=== PATIENT | male | born 1945 | race Caucasian/White ===

== ENCOUNTER 2016-10-26 07:58 | Outpatient (CLI) | payer OTHER | END 2016-10-26 07:59 | disposition home or self-care (01) | DX: I35.1 Nonrheumatic aortic (valve) insufficiency (principal); I51.7 Cardiomegaly; I77.810 Thoracic aortic ectasia ==

== ENCOUNTER 2016-12-29 12:38 | Emergency (ER) | payer OTHER ==
[2016-12-29 12:58] VITALS: BP 128/70
--- NOTE | 2016-12-29 13:16 | ED Physician Documentation ---
PD HPI BACK PAIN - Stated complaint Stated Complaint: BACK PAIN - Chief complaint Chief Complaint: Back Pain - History obtained from History obtained from: Patient - History of Present Illness Timing - onset: Other (The last 10 days he's had nonmigratory and nonradiating right flank pain that is somewhat worse when he is standing up. At times the pain takes his breath away, although he denies shortness of breath. He's had very mild nausea with it and a poor appetite. He is a history of aortic regurgitation, otherwise is pretty healthy. No history of renal colic. No urinary complaints.) Review of Systems Ten Systems: 10 systems reviewed and negative Constitutional: denies: Fever, Chills Cardiac: denies: Chest pain / pressure, Palpitations Respiratory: denies: Dyspnea, Cough GI: denies: Abdominal Pain, Vomiting, Diarrhea PD PAST MEDICAL HISTORY - Past Medical History Past Medical History: Yes Cardiovascular: Hypertension, Other Psych: Depression - Past Surgical History Past Surgical History: No - Present Medications Home Medications: Ambulatory Orders Medication Instructions Recorded Confirmed Aspirin Chewable [[place] 81 mg PO DAILY 12/29/16 12/29/16 Aspirin] Atorvastatin [Lipitor] 0 mg PO DAILY 12/29/16 12/29/16 HYDROcod/ACETAM 5/325 [[place]eters[place] 5/325] 1 - 2 ea PO Q6H PRN #15 tablet 12/29/16 Lisinopril 0 mg PO DAILY 12/29/16 12/29/16 Sertraline HCl 0 mg PO DAILY 12/29/16 12/29/16 - Allergies Allergies/Adverse Reactions: Allergies Allergy/AdvReac Type Severity Reaction Status Date / Time No Known Drug Allergies Allergy Verified 12/29/16 12:58 - Social History Does the pt smoke?: Yes Smoking Status: Current every day smoker Does the pt drink ETOH?: Yes ETOH Use: Wine, Beer, Liquor Does the pt have substance abuse?: No - Immunizations Immunizations are current?: Yes - POLST Patient has POLST: No PD ED PE NORMAL - Vitals Vital signs reviewed: Yes - General General: Alert and oriented X 3, No acute distress - HEENT HEENT: PERRL, EOMI - Neck Neck: Supple, no meningeal sign, No bony TTP - Cardiac Cardiac: RRR, Other (3/6 decrescendo holosystolic murmur heard best at the right upper sternal border and apex.) - Respiratory Respiratory: No respiratory distress, Clear bilaterally - Abdomen Abdomen: Soft, Non tender - Back Back: No CVA TTP, No spinal TTP, Other (The patient has equal and normal patellar and Achilles reflexes bilaterally. Normal sensation in all areas of the legs. Patient denies saddle anesthesia. Normal strength in flexion and extension at the ankles, knees and flexion of the hips.) - Extremities Extremities: No edema, No calf tenderness / cord - Neuro Neuro: Alert and oriented X 3, Normal speech - Psych Psych: Normal mood, Normal affect Results - Vitals Vitals: Vital Signs - 24 hr 12/29/16 12:55 Temperature 36.6 C Heart Rate 70 Respiratory 17 Rate Blood Pressure 128/70 O2 Saturation 96 Oxygen O2 Source Room air - Labs Labs: Laboratory Tests 12/29/16 12/29/16 12/29/16 13:19 13:52 13:52 WBC 7.2 RBC 4.37 L Hgb 13.9 L Hct 40.6 L MCV 92.9 MCH 31.9 H MCHC 34.3 RDW 13.6 Plt Count 158 MPV 8.4 Neut # 5.4 Lymph # 1.0 L [place] # 0.5 Eos # 0.2 Baso # 0.1 Absolute Nucleated RBC 0.00 Nucleated RBCs 0.0 Sodium 136 Potassium 4.5 Chloride 101 Carbon Dioxide 26 Anion Gap 9.0 BUN 24 H Creatinine 0.8 Estimated GFR (MDRD) 96 Glucose 95 Calcium 9.0 Total Bilirubin 0.7 AST 26 ALT 25 Alkaline Phosphatase 46 Total Protein 7.5 Albumin 4.0 Globulin 3.5 Albumin/Globulin Ratio 1.1 Lipase 31 Urine Color YELLOW Urine Clarity CLEAR Urine pH 5.5 Ur Specific [place] 1.020 Urine Protein NEGATIVE Urine Glucose (UA) NEGATIVE Urine Ketones NEGATIVE Urine Occult Blood NEGATIVE Urine Nitrite NEGATIVE Urine Bilirubin NEGATIVE Urine Urobilinogen 0.2 (NORMAL) Ur Leukocyte Esterase NEGATIVE Ur Microscopic Review NOT INDICATED Urine Culture Comments NOT INDICATED - Rads (name of study) CT A/P Radiology: EMP read contemporaneously (NAD) PD MEDICAL DECISION MAKING - ED course ED course: He presents with right flank pain it sounds mostly musculoskeletal, it is worse with motion and twisting and walking, that said it is in a good location for renal colic, however on CT there is no evidence of this and he's without hematuria. He denies pain at rest making a vascular issue very unlikely. Departure - Departure Disposition: 01 Home, Self Care Clinical Impression: Right flank pain Condition: Good Record reviewed to determine appropriate education?: Yes Instructions: ED Low Back Pain Injury Prescriptions: HYDROcod/ACETAM 5/325 [Peterson 5/325] 1 - 2 ea PO Q6H PRN #15 tablet PRN Reason: Pain Comments: Call your doctor to arrange a follow up appointment. Make the next available appointment. In the interim return anytime if worse or if new symptoms develop. Do not drink or drive while on narcotic pain medicine. Note that many narcotic pain relievers also contain tylenol/acetaminophen. Please ensure that your total dose of acetaminophen from all sources does not exceed 3 grams (3000mg) per day. You may constipated on this medication, take a stool softener such as "Colace" twice a day while you are on it. Also recommend a [id number] laxative such as senna or MiraLAX any day that you do not have a bowel movement. If you received narcotic pain medication in the emergency department, do not drive or operate machinery for the next 24 hours.
[2016-12-29 13:42] LABS: BILIRUBIN,URINE NEGATIVE (NEGATIVE); PH,URINE 5.5 PH (5.0-7.5)
[2016-12-29 13:47] LABS: UA CHARGE (STRIP ONLY) YES; UR CULTURE IF IND NOT INDICATED
[2016-12-29 13:57] LABS: BASOPHILS # (AUTO) 0.1 10^3/uL (0.0-0.1); BASOPHILS % (AUTO) 1.2 %; EOSINOPHILS # (AUTO) 0.2 10^3/uL (0.0-0.7); EOSINOPHILS % (AUTO) 2.8 %; HCT - HEMATOCRIT 40.6 % (42.0-52.0); HGB - HEMOGLOBIN 13.9 g/dL (14.0-18.0); LYMPHOCYTES % (AUTO) 14.3 %; MEAN CORPUSCULAR HEMOGLOBIN 31.9 pg (27.0-31.0); MEAN CORPUSCULAR HGB CONC 34.3 g/dL (32.0-36.0); MEAN CORPUSCULAR VOLUME 92.9 fL (80.0-94.0); MEAN PLATELET VOLUME 8.4 fL (7.4-11.4); MONOCYTES # (AUTO) 0.5 10^3/uL (0.0-1.0); MONOCYTES % (AUTO) 7.4 %; NEUTROPHILS # (AUTO) 5.4 10^3/uL (1.5-6.6); NEUTROPHILS % (AUTO) 74.3 %; RED BLOOD COUNT 4.37 10^6/uL (4.70-6.10); RED CELL DISTRIBUTION WIDTH 13.6 % (12.0-15.0); UNCORRECTED WHITE BLOOD COUNT 7.2 x10^3/uL; WHITE BLOOD COUNT 7.2 x10^3/uL (4.8-10.8)
[2016-12-29 14:08] LABS: ALBUMIN/GLOBULIN RATIO 1.1 (1.0-2.2); BILIRUBIN,TOTAL 0.7 mg/dL (0.2-1.0); CREATININE 0.8 mg/dL (0.6-1.2); POTASSIUM 4.5 mmol/L (3.5-5.0); TOTAL PROTEIN 7.5 g/dL (6.7-8.2)
--- NOTE | 2016-12-29 15:09 | CT Preliminary Report ---
Exam: CT Abdomen/Pelvis W/O IMPRESSION: 1. No urinary tract stones or obstruction. No findings to explain right flank pain. 2. Chronic and incidental findings as above. [facility] SITE ID: [id number]
--- NOTE | 2016-12-29 15:11 | CT Report ---
EXAM: CT ABDOMEN AND PELVIS (CT KUB) EXAM DATE: 12/29/2016 01:57 PM. CLINICAL HISTORY: Rt flank pain. COMPARISONS: None. TECHNIQUE: Routine axial helical CT imaging was performed through the abdomen and pelvis without IV c ontrast. Reconstructions: Coronal and sagittal. In accordance with CT protocol optimization, one or more of the following dose reduction techniques w ere utilized for this exam: automated exposure control, adjustment of mA and/or KV based on patient s ize, or use of iterative reconstructive technique. FINDINGS: Lung Bases: Evaluation is limited by motion artifact. Calcified granuloma in the right lung base. Oth erwise no significant abnormality. Right Kidney/Ureter: No stones, hydronephrosis, or hydroureter. No perinephric fat stranding. Left Kidney/Ureter: No stones, hydronephrosis, or hydroureter. No perinephric fat stranding. Other Solid Organs: Noncontrast images of the solid organs are grossly unremarkable. Gallbladder/Bile Ducts: The gallbladder appears to be decompressed; no definite abnormality. Peritoneal Cavity: No ascites or pneumoperitoneum. No bowel obstruction or abnormal stool burden. Col onic diverticula without inflammatory change. Pelvic Organs: Mild diffuse urinary bladder wall thickening may be secondary to underdistention. No b ladder calcifications. Mildly enlarged prostate gland contains coarse calcifications. Vasculature: Moderate atherosclerosis without aneurysm. Other: None. IMPRESSION: 1. No urinary tract stones or obstruction. No findings to explain right flank pain. 2. Chronic and incidental findings as above. [facility] Referring Provider Line: [phone] SITE ID: [id number]
== END 2016-12-29 15:23 | disposition home or self-care (01) ==
LOC: ED 12:38
DX: R10.9 Unspecified abdominal pain (principal); I10 Essential (primary) hypertension; F32.9 Major depressive disorder, single episode, unspecified; F17.200 Nicotine dependence, unspecified, uncomplicated; Z79.82 Long term (current) use of aspirin
CPT/HCPCS: 36415; 74176; 80053; 81001; 81003; 83690; 85025; 87086; 99283; 99284

== ENCOUNTER 2017-12-04 16:00 | Outpatient (CLI) | payer MEDICARE ==
--- NOTE | 2017-12-04 17:31 | Ultrasound Report ---
EXAM: LEFT LOWER EXTREMITY VENOUS ULTRASOUND EXAM DATE: 12/04/2017 05:00 PM. CLINICAL HISTORY: EDEMA LEG. COMPARISON: None. TECHNIQUE: Real-time sonographic vascular imaging was performed by the reinsurance claims analyst through the lower extremity utilizing both color-flow and Doppler spectral analysis. Multiple business process representative static vidal ges were saved for review. FINDINGS: Common Femoral Vein (CFV): Normal. CFV-GSV Junction: Normal. Profunda Femoral Vein (PFV): Normal. Femoral Vein (FV) Prox: Normal. Femoral Vein (FV) Mid: Normal. Femoral Vein (FV) Dist: Normal. Popliteal Vein: Normal. Posterior Tibial Veins: Normal. Peroneal Veins: Normal. Contralateral Side CFV: Normal. Other: None. IMPRESSION: No evidence for deep venous thrombosis. [facility] Referring Provider Line: [phone] SITE ID: [id number]
== END 2017-12-04 16:01 | disposition home or self-care (01) ==
LOC: DI 16:00
PROVIDERS: ATTEND Physician Assistant Medical
DX: R60.0 Localized edema (principal)

== ENCOUNTER 2018-01-01 10:45 | Outpatient (CLI) | payer MEDICARE ==
[2018-01-01 12:35] LABS: BASOPHILS # (AUTO) 0.1 10^3/uL (0.0-0.1); BASOPHILS % (AUTO) 1.2 %; EOSINOPHILS # (AUTO) 0.2 10^3/uL (0.0-0.7); EOSINOPHILS % (AUTO) 2.8 %; HGB - HEMOGLOBIN 14.6 g/dL (14.0-18.0); LYMPHOCYTES % (AUTO) 16.1 %; MEAN CORPUSCULAR HEMOGLOBIN 32.1 pg (27.0-31.0); MEAN CORPUSCULAR HGB CONC 33.8 g/dL (32.0-36.0); MEAN CORPUSCULAR VOLUME 95.2 fL (80.0-94.0); MEAN PLATELET VOLUME 8.9 fL (7.4-11.4); MONOCYTES # (AUTO) 0.6 10^3/uL (0.0-1.0); MONOCYTES % (AUTO) 9.7 %; NEUTROPHILS # (AUTO) 4.5 10^3/uL (1.5-6.6); NEUTROPHILS % (AUTO) 70.2 %; PLT - PLATELET COUNT 176 10^3/uL (130-450); RED BLOOD COUNT 4.54 10^6/uL (4.70-6.10); RED CELL DISTRIBUTION WIDTH 13.5 % (12.0-15.0); WHITE BLOOD COUNT 6.4 x10^3/uL (4.8-10.8)
[2018-01-01 12:57] LABS: ALBUMIN/GLOBULIN RATIO 1.1 (1.0-2.2); ALKALINE PHOSPHATASE 44 IU/L (42-121); ALT ALANINE AMINOTRANSFERASE 26 IU/L (10-60); AST ASPARTATE AMINOTRANSFERASE 30 IU/L (10-42); BILIRUBIN,TOTAL 0.7 mg/dL (0.2-1.0); BUN - BLOOD UREA NITROGEN 18 mg/dL (6-20); CALCIUM 8.9 mg/dL (8.5-10.3); CARBON DIOXIDE - CO2 29 mmol/L (21-32); CHLORIDE 98 mmol/L (101-111); CHOL/HDL RATIO 1.9 (<5.0); CHOLESTEROL 187 mg/dL; CREATININE 0.8 mg/dL (0.6-1.2); GFR - MDRD 96 (>89); GLUCOSE 99 mg/dL (70-100); HDL CHOLESTEROL 97 mg/dL; LDL CHOLESTEROL,CALCULATED 81 mg/dL; LDL/HDL RATIO 0.8 (<3.6); SODIUM 135 mmol/L (135-145); TOTAL PROTEIN 7.7 g/dL (6.7-8.2); VLDL CHOLESTEROL 9 mg/dL
== END 2018-01-01 10:46 | disposition home or self-care (01) ==
LOC: LAB.WCP 10:45
PROVIDERS: ATTEND Physician Assistant Medical
DX: I10 Essential (primary) hypertension (principal); I71.2 Thoracic aortic aneurysm, without rupture
CPT/HCPCS: 36415; 80053; 80061; 83721; 85025

== ENCOUNTER 2018-01-13 09:08 | Outpatient (CLI) | payer MEDICARE | END 2018-01-13 09:09 | disposition home or self-care (01) | LOC: DI 09:08 | PROVIDERS: ATTEND Physician Assistant Medical | DX: I35.1 Nonrheumatic aortic (valve) insufficiency (principal); I51.7 Cardiomegaly; I77.810 Thoracic aortic ectasia | CPT/HCPCS: 93306 ==

== ENCOUNTER 2018-04-03 08:15 | Outpatient (CLI) | payer MEDICARE ==
[2018-04-03 08:52] LABS: CALCIUM 9.3 mg/dL (8.5-10.3); CREATININE 0.8 mg/dL (0.6-1.2)
[2018-04-03] MEDS ORDERED: IOPAMIDOL-300 100 ML VIAL ONE (09:46)
--- NOTE | 2018-04-03 17:48 | CT Report ---
Reason: ASCENDING AORTIC ANEURYSM Procedure Date: 04/03/2018 Accession Number: [id number] / [id number] Procedure: CT - Chest Angio (PE) CPT Code: FULL RESULT: EXAM: CT ANGIOGRAM CHEST EXAM DATE: 04/03/2018 10:02 AM. CLINICAL HISTORY: Ascending aortic aneurysm. COMPARISON: ABDOMEN/PELVIS W/O 12/29/2016 1:29 PM. TECHNIQUE: Routine helical imaging was performed through the chest in the arterial phase. IV Contrast: 80 ML Isovue 300. Reconstructions: Coronal 3-D MIP reconstructions.Sagittal and coronal. In accordance with CT protocol optimization, one or more of the following dose reduction techniques were utilized for this exam: automated exposure control, adjustment of mA and/or KV based on patient size, or use of iterative reconstructive technique. FINDINGS: Vasculature: There is borderline aneurysmal dilatation of the ascending thoracic aorta measuring up to 4.1 cm. The aorta tapers smoothly to normal caliber in the mid arch and descending region. There is significant tortuosity of the proximal descending thoracic aorta. No acute aortic pathology is identified. There is conventional origin anatomy of the coronary arteries demonstrating minor calcified atherosclerotic disease. Trileaflet aortic valve with mild calcification of the annulus region is also seen. The pulmonary arteries demonstrate no filling defects to suggest pulmonary embolism. Conventional aortic arch anatomy is seen with aortic arch branches diffusely patent. Visualized portions of the mesenteric and renal artery vasculature are relatively patent. Lungs/Pleura: Minimal to mild emphysema is present. 8 mm calcified granuloma is seen in the right lower lobe. Small 6 mm pulmonary nodules in the right middle lobe are seen (image 88 and 103, series 4). Mediastinum: Normal. No cardiac enlargement or adenopathy. Upper Abdomen: Unremarkable. Other: None. IMPRESSION: 1. Significantly tortuous borderline aneurysmal dilation of the aorta with the ascending portion measuring up to 4.1 cm. No acute aortic pathology is demonstrated. 2. Small 6 mm right middle lobe pulmonary nodules. Consider follow-up CT in 6-12 months to assess for stability. [facility]
[2018-04-08] MEDS ORDERED: IOPAMIDOL-300 100 ML VIAL IVP ONE (09:05)
== END 2018-04-03 08:16 | disposition home or self-care (01) ==
LOC: DI 08:15
PROVIDERS: ATTEND Physician Assistant Medical
DX: I71.2 Thoracic aortic aneurysm, without rupture (principal); R91.8 Other nonspecific abnormal finding of lung field
CPT/HCPCS: 36415; 71275; 80048; Q9967

== ENCOUNTER 2021-04-20 11:44 | Outpatient (CLI) | payer MEDICARE ==
[2021-04-20 18:02] LABS: BASOPHILS # (AUTO) 0.1 10^3/uL (0.0-0.1); BASOPHILS % (AUTO) 1.1 %; EOSINOPHILS # (AUTO) 0.1 10^3/uL (0.0-0.7); EOSINOPHILS % (AUTO) 1.9 %; HCT - HEMATOCRIT 44.5 % (42.0-52.0); HGB - HEMOGLOBIN 14.5 g/dL (14.0-18.0); LYMPHOCYTES % (AUTO) 14.6 %; MEAN CORPUSCULAR HEMOGLOBIN 32.2 pg (27.0-31.0); MEAN CORPUSCULAR HGB CONC 32.6 g/dL (32.0-36.0); MEAN CORPUSCULAR VOLUME 98.9 fL (80.0-94.0); MEAN PLATELET VOLUME 10.6 fL (7.4-11.4); MONOCYTES # (AUTO) 0.6 10^3/uL (0.0-1.0); MONOCYTES % (AUTO) 9.2 %; NEUTROPHILS # (AUTO) 5.1 10^3/uL (1.5-6.6); NEUTROPHILS % (AUTO) 72.8 %; PLT - PLATELET COUNT 192 10^3/uL (130-450); RED CELL DISTRIBUTION WIDTH 12.9 % (12.0-15.0)
[2021-04-20 18:15] LABS: ALBUMIN 4.3 g/dL (3.2-5.5); ALBUMIN/GLOBULIN RATIO 1.4 (1.0-2.2); ALKALINE PHOSPHATASE 44 IU/L (42-121); ALT ALANINE AMINOTRANSFERASE 22 IU/L (10-60); AST ASPARTATE AMINOTRANSFERASE 27 IU/L (10-42); BUN - BLOOD UREA NITROGEN 17 mg/dL (6-20); CALCIUM 9.2 mg/dL (8.5-10.3); CARBON DIOXIDE - CO2 29 mmol/L (21-32); CHLORIDE 97 mmol/L (101-111); CHOLESTEROL 204 mg/dL; CREATININE 0.8 mg/dL (0.6-1.2); GFR - MDRD 94 (>89); GLUCOSE 81 mg/dL (70-100); HDL CHOLESTEROL 100 mg/dL; LDL CHOLESTEROL,CALCULATED 93 mg/dL; LDL/HDL RATIO 0.9 (<3.6); POTASSIUM 4.9 mmol/L (3.5-5.0); SODIUM 137 mmol/L (135-145); TOTAL PROTEIN 7.4 g/dL (6.7-8.2); TRIGLYCERIDES 55 mg/dL; VLDL CHOLESTEROL 11 mg/dL
== END 2021-04-20 23:59 | disposition home or self-care (01) ==
LOC: LAB.WCP 11:44
PROVIDERS: ATTEND Physician Assistant Medical
DX: I10 Essential (primary) hypertension (principal); I71.2 Thoracic aortic aneurysm, without rupture
CPT/HCPCS: 36415; 80053; 80061; 83721; 85025

== ENCOUNTER 2023-09-16 12:25 | Outpatient (CLI) | payer MEDICARE ==
[2023-09-16 12:45] LABS: BASOPHILS # (AUTO) 0.1 10^3/uL (0.0-0.1); BASOPHILS % (AUTO) 1.1 %; EOSINOPHILS # (AUTO) 0.1 10^3/uL (0.0-0.7); EOSINOPHILS % (AUTO) 1.4 %; HCT - HEMATOCRIT 42.1 % (42.0-52.0); LYMPHOCYTES # (AUTO) 1.1 10^3/uL (1.5-3.5); LYMPHOCYTES % (AUTO) 17.3 %; MEAN CORPUSCULAR HEMOGLOBIN 31.5 pg (27.0-31.0); MEAN CORPUSCULAR HGB CONC 33.3 g/dL (32.0-36.0); MEAN CORPUSCULAR VOLUME 94.8 fL (80.0-94.0); MEAN PLATELET VOLUME 9.9 fL (7.4-11.4); MONOCYTES # (AUTO) 0.7 10^3/uL (0.0-1.0); MONOCYTES % (AUTO) 10.6 %; NEUTROPHILS # (AUTO) 4.4 10^3/uL (1.5-6.6); NEUTROPHILS % (AUTO) 69.3 %; PLT - PLATELET COUNT 177 10^3/uL (130-450); RED BLOOD COUNT 4.44 10^6/uL (4.70-6.10); RED CELL DISTRIBUTION WIDTH 12.6 % (12.0-15.0); WHITE BLOOD COUNT 6.4 x10^3/uL (4.8-10.8)
[2023-09-16 13:02] LABS: ALBUMIN 4.2 g/dL (3.2-5.5); ALBUMIN/GLOBULIN RATIO 1.2 (1.0-2.2); ALKALINE PHOSPHATASE 52 IU/L (42-121); ALT ALANINE AMINOTRANSFERASE 17 IU/L (10-60); AST ASPARTATE AMINOTRANSFERASE 22 IU/L (10-42); BILIRUBIN,TOTAL 0.5 mg/dL (0.2-1.0); BUN - BLOOD UREA NITROGEN 16 mg/dL (6-20); CALCIUM 9.5 mg/dL (8.5-10.3); CARBON DIOXIDE - CO2 31 mmol/L (21-32); CHLORIDE 96 mmol/L (101-111); CHOL/HDL RATIO 1.9 (<5.0); CHOLESTEROL 183 mg/dL; CREATININE 0.7 mg/dL (0.6-1.3); GFR - MDRD 110 (>89); GLUCOSE 87 mg/dL (74-104); HDL CHOLESTEROL 94 mg/dL; LDL CHOLESTEROL,CALCULATED 79 mg/dL; LDL/HDL RATIO 0.8 (<3.6); POTASSIUM 5.5 mmol/L (3.5-4.5); SODIUM 131 mmol/L (135-145); TOTAL PROTEIN 7.6 g/dL (6.4-8.9); TRIGLYCERIDES 52 mg/dL (48-352); VLDL CHOLESTEROL 10 mg/dL
== END 2023-09-16 12:26 | disposition home or self-care (01) ==
LOC: LAB 12:25
PROVIDERS: ATTEND Physician Assistant Medical
DX: I10 Essential (primary) hypertension (principal)
CPT/HCPCS: 36415; 80053; 80061; 83721; 85025

== ENCOUNTER 2023-10-02 09:08 | Outpatient (CLI) | payer MEDICARE ==
[2023-10-02 09:48] LABS: CALCIUM 9.7 mg/dL (8.5-10.3); CREATININE 0.8 mg/dL (0.6-1.3); POTASSIUM 4.5 mmol/L (3.5-4.5)
== END 2023-10-02 09:09 | disposition home or self-care (01) ==
LOC: LAB 09:08
PROVIDERS: ATTEND Physician Assistant Medical
DX: E87.5 Hyperkalemia (principal)
CPT/HCPCS: 36415; 80048

== ENCOUNTER 2023-10-15 10:44 | Outpatient (CLI) | payer MEDICARE ==
--- NOTE | 2023-10-15 12:17 | XRAY Report ---
PROCEDURE: Lumbar Spine 2-3V INDICATIONS: LOW BACK PAIN TECHNIQUE: 3 views of the lumbar spine were acquired. COMPARISON: None. FINDINGS: Bones: 5 [id number] vertebrae are present. There is normal bony alignment. No vertebral body compression fractures. No suspicious bony lesions. Severe multilevel disc height loss. Lower lumbar facet arthropathy. Suspect possible canal stenosis. Soft tissues: Overlying bowel gas pattern is normal. No suspicious soft tissue calcifications. IMPRESSION: Degenerative change. Suspect canal stenosis. No acute bony abnormality. Depending on symptomatology, lumbar spine MRI may be helpful. Reviewed by: Colt Mack MD on 10/15/2023 12:16 PM PDT Approved by: Colt Mack MD on 10/15/2023 12:16 PM PDT Station ID: [id number]
--- NOTE | 2023-10-15 14:08 | XRAY Report ---
PROCEDURE: Hips w/Pelvis 2-3V BL INDICATIONS: LEFT HIP PAIN TECHNIQUE: An AP view of the pelvis and bilateral frog-leg lateral views of the hips were acquired. COMPARISON: None. FINDINGS: Bones: No fractures or dislocations. No suspicious bony lesions. The visualized pelvic ring appear s intact. Mild to moderate right hip degenerative change. Mild left hip degenerative change. Soft tissues: No suspicious soft tissue calcifications or masses. IMPRESSION: Bilateral hip degenerative change, right greater than left. Reviewed by: Colt Mack MD on 10/15/2023 2:07 PM PDT Approved by: Colt Mack MD on 10/15/2023 2:07 PM PDT Station ID: [id number]
== END 2023-10-15 10:45 | disposition home or self-care (01) ==
LOC: DI 10:44
PROVIDERS: ATTEND Physician Assistant Medical
DX: M47.816 Spondylosis without myelopathy or radiculopathy, lumbar region (principal); M16.0 Bilateral primary osteoarthritis of hip

== ENCOUNTER 2024-07-07 17:51 | Inpatient (IN) ==
[2024-07-07 18:35] LABS: BASOPHILS % (AUTO) 0.4 %; EOSINOPHILS # (AUTO) 0.1 10^3/uL (0.0-0.7); EOSINOPHILS % (AUTO) 0.5 %; HCT - HEMATOCRIT 34.3 % (42.0-52.0); HGB - HEMOGLOBIN 12.5 g/dL (14.0-18.0); LYMPHOCYTES # (AUTO) 0.6 10^3/uL (1.5-3.5); LYMPHOCYTES % (AUTO) 6.4 %; MEAN CORPUSCULAR HEMOGLOBIN 32.2 pg (27.0-31.0); MEAN CORPUSCULAR HGB CONC 36.4 g/dL (32.0-36.0); MEAN CORPUSCULAR VOLUME 88.4 fL (80.0-94.0); MONOCYTES # (AUTO) 0.7 10^3/uL (0.0-1.0); MONOCYTES % (AUTO) 7.7 %; NEUTROPHILS # (AUTO) 8.2 10^3/uL (1.5-6.6); NEUTROPHILS % (AUTO) 84.4 %; PLT - PLATELET COUNT 182 10^3/uL (130-450); RED BLOOD COUNT 3.88 10^6/uL (4.70-6.10); RED CELL DISTRIBUTION WIDTH 11.9 % (12.0-15.0); WHITE BLOOD COUNT 9.7 x10^3/uL (4.8-10.8)
[2024-07-07 18:55] LABS: ALBUMIN 3.8 g/dL (3.2-5.5); ALBUMIN/GLOBULIN RATIO 1.2 (1.0-2.2); BILIRUBIN,TOTAL 0.6 mg/dL (0.2-1.0); CALCIUM 8.5 mg/dL (8.5-10.3); CREATININE 0.7 mg/dL (0.6-1.3); POTASSIUM 4.3 mmol/L (3.5-4.5); TOTAL PROTEIN 6.9 g/dL (6.4-8.9)
[2024-07-07] MEDS: SODIUM CHLORIDE 0.9% 1,000 ML IV STA (19:23)
--- NOTE | 2024-07-07 19:47 | ED Physician Documentation ---
History of Present Illness Stated complaint Stated Complaint: LOW SODIUM Chief complaint Chief Complaint: General History obtained from History obtained from: Patient Additonal information Additional information: The patient comes to the emergency department chief complaint of "I was told to come in because my sodium was low". Patient has been struggling with hyponatremia for the last couple of weeks and was seen in our emergency department last week but did not want to be admitted. He started out with a sodium of 119 and with intervention, the sodium was brought up to 125 in the emergency department. He went to follow-up with his primary doctor in clinic and home was found to have a sodium 120 there. He was told to come back to the emergency department and strongly consider admission. This patient states he has been feeling weak and tired but denies other symptoms acutely. Over the last few weeks, the patient has noticed that he is lost his enjoyment of cooking and eating good food, and has not been eating very well. He also has been drinking about a sixpack of beer every night. He denies drinking excessive amounts of water. His only new medication is Plavix. He is on sertraline but n o dose changes that he knows of. No other complaints at this time. No history of seizures. Prior to a couple weeks ago, the patient's sodium measurements had always been normal. Meds/Allgy Home Medications Ambulatory Orders Medication Instructions Recorded Confirmed aspirin 81 mg tablet,delayed 81 mg PO QDAY 07/07/24 07/07/24 release (Adult Low Dose Aspirin) clopidogrel 75 mg tablet (Plavix) 75 mg PO DAILY #30 tabs 07/07/24 07/07/24 fluocinonide 0.05 % topical 1 applic topical QDAY PRN 07/07/24 07/07/24 solution seborrheic flare lisinopril 10 mg tablet 10 mg PO QPM 07/07/24 07/07/24 metoprolol succinate 25 mg 25 mg PO QDAY 07/07/24 07/07/24 tablet,extended release 24 hr multivitamin (Daily Multi-Vitamin 1 tab PO QDAY 07/07/24 07/07/24 tablet) sertraline 100 mg tablet 100 mg PO QDAY 07/07/24 07/07/24 Allergies Allergies Allergy/AdvReac Type Severity Reaction Status Date / Time No Known Drug Allergies Allergy Verified 07/07/24 18:03 [facility] Medical History Medical History (Updated 07/07/24 @ 19:47 by Amna Poe MD) History of transient ischemic attack Social History Social History Smoking Status: Current every day smoker If you are a former smoker, when did you quit? (Date/Year): 1 Number of Years Smoked: 50 How many cigarettes a day do you smoke? (20 cigarettes=1 Pk): 20 Second hand tobacco smoke exposure: No Do you dip or chew tobacco?: No Do you vape?: No Patient requests smoking cessation consult: No Initiate information on smoking cessation: No Living arrangement: At home Marital Status: Living Condition: Alone Support Person: Yes Relationship: Sibling Level: Independent Do you feel safe in your home environment?: Yes Suffered physical, verbal, emotional, or financial abuse?: No History of Abuse: No ETOH Use: Beer Frequency: Daily Number of Amount/day: 6 Substance Use: cannabis (any form) POLST Patient has POLST: No Exam Constitutional normal general appearance and no apparent distress HENMT normocephalic, head/scalp atraumatic, external nose normal and oral mucous membranes normal Eyes EOMs intact bilaterally Neck/C-Spine visual inspection normal and supple Respiratory breath sounds equal bilaterally, normal respiratory effort and clear to auscultation bilaterally Cardiovascular normal heart rate noted, regular rhythm noted and no edema Gastrointestinal abdomen normal to inspection, abdomen soft to palpation, nontender to palpation and nondistended Genitourinary no CVA tenderness Extremities normal to inspection Neurology Alert, grossly intact Psychiatry mental status grossly normal Skin skin color normal Results Vitals Vitals: Vital Signs - 24 hr 07/07/24 18:04 Temperature 36.1 C L Temperature Source Temporal Artery Scan Pulse Rate 77 Respiratory Rate 18 Blood Pressure 124/66 O2 Saturation 97 O2 Source Room air Pain Intensity 4 Oxygen O2 Source Room air Labs Labs: Laboratory Tests 07/07/24 18:29 WBC 9.7 RBC 3.88 L Hgb 12.5 L Hct 34.3 L MCV 88.4 MCH 32.2 H MCHC 36.4 H RDW 11.9 L Plt Count 182 MPV 9.0 Neut # (Auto) 8.2 H Lymph # (Auto) 0.6 L [place] # (Auto) 0.7 Eos # (Auto) 0.1 Baso # (Auto) 0.0 Absolute Nucleated RBC 0.00 Nucleated RBC % 0.0 Sodium 119 L* Potassium 4.3 Chloride 88 L Carbon Dioxide 25 Anion Gap 6.0 BUN 18 Creatinine 0.7 Estimated GFR (MDRD) 109 Glucose 161 H Calcium 8.5 Total Bilirubin 0.6 AST 18 ALT 15 Alkaline Phosphatase 49 Total Protein 6.9 Albumin 3.8 Globulin 3.1 Albumin/Globulin Ratio 1.2 Lipase 47 PD Medical Decision Making ED course Complexity details: reviewed old records, reviewed results, re-evaluated patient, considered differential and d/w patient ED course: The patient was worked up in the emergency department and was found to have sodium of 119 here. He had already been started on normal saline via IV. I discussed the case with Dr. Lane, the on-call hospitalist and she agreed to admit the patient to her service. Discharge Plan Discharge Patient Disposition: 66 [facility] DC/Xfer Condition: Serious Clinical Impression: Hyponatremia Interventions: ED Admission Assessment Last Done: 07/07/24 20:24
--- NOTE | 2024-07-07 20:22 | XRAY Report ---
PROCEDURE: XR Chest 1V INDICATIONS: hyponatremia, possible mass TECHNIQUE: One view of the chest was acquired. COMPARISON: 05/04/2016, 06/04/2016. Correlation is also made with CT, 04/03/2018 FINDINGS: Surgical changes and devices: None. Lungs and pleura: No pleural effusions or pneumothorax. No consolidation. Mild generalized intersti tial prominence can be seen. Mediastinum: The aorta is prominent and tortuous. The cardiac contours are mildly enlarged. Bones and chest wall: No suspicious bony lesions. There is dextroconvex scoliosis. Age-appropriate d egenerative changes are seen. Overlying soft tissues appear unremarkable. IMPRESSION: Mild cardiomegaly and mild interstitial prominence. Please consider mild/early CHF. The aorta is prominent and tortuous, as before. Moderate dextroconvex thoracic scoliosis is seen. Reviewed by: Solo John MD on 07/07/2024 7:20 PM [facility] Approved by: Solo John MD on 07/07/2024 7:20 PM [facility] Station ID: [id number]
[2024-07-07] MEDS ORDERED: SODIUM CHLORIDE FLUSH 0.9% 10 ML SYRINGE IVP PRN (20:33)
[2024-07-07] MEDS ORDERED: ONDANSETRON ODT 4 MG TABLET TL PRN (20:33)
--- NOTE | 2024-07-07 20:35 | HISTORY & PHYSICAL EXAMINATION ---
Chief Complaint Chief Complaint Chief Complaint: abnormal labs History of Present Illness Admitted From Admitted From:: Home History Obtained From Records Reviewed: Yes History obtained from: Records, ED physician, and patient Exam Limitations: Telemedicine History of Present Illness HPI Comment/Other: Mr. Rodriguez is a 79yoM with a history of hypertension,TIA, depression that presented to the ED for re-evaluation of low sodium. He initially presented a week prior to this presentation with complaints of weakness, fatigue and lethargy,. He denied any precipitating factors, sick contacts, cough, fever, shortness of breath. Workup at that time demonstrated a sodium of 119. He left AMA once his sodium levels corrected after receiving fluids in the ED. On the day of presentation he had outpatient labwork at his follow up appointment with his PCP and was found to have a sodium of 119 again. He endorses similar symptoms,but denies any new acute changes.He was recently started on Plavix. He takes lisinopril for hypertension and Sertraline for depression. He has not had any changes to his medications or dosages in the past month. Due to the increased risk of adverse outcome of untreated hyponatremia and the reoccurrence, I will admit the patient to the hospitalist service for further evaluation and management. During my evaluation, telemedicine tools, including phone and live-video were used. Patient gave consent to proceed with this visit via telemedicine. I discussed the Plan of care to correct and monitor his sodium levels with the patient. He agreed with plan of treat and admission. Review of Systems Status of ROS: 10 or more systems reviewed and unremarkable except as noted in history and below [facility] Medical History Medical History (Updated 07/07/24 @ 19:47 by Amna Poe MD) History of transient ischemic attack Social History Social History Smoking Status: Current every day smoker Number of Years Smoked: 50 How many cigarettes a day do you smoke? (20 cigarettes=1 Pk): 20 Second hand tobacco smoke exposure: No Do you dip or chew tobacco?: No Do you vape?: No Living arrangement: At home Marital Status: Living Condition: Alone Support Person: Yes Relationship: Level: Independent Do you feel safe in your home environment?: Yes Suffered physical, verbal, emotional, or financial abuse?: No History of Abuse: No ETOH Use: Beer Frequency: Daily Number of Amount/day: 6 Substance Use: cannabis (any form) POLST Patient has POLST: No Meds/Allgy Home Medications Ambulatory Orders Medication Instructions Recorded Confirmed aspirin 81 mg tablet,delayed 81 mg PO QDAY 07/07/24 07/07/24 release (Adult Low Dose Aspirin) clopidogrel 75 mg tablet (Plavix) 75 mg PO DAILY #30 tabs 07/07/24 07/07/24 fluocinonide 0.05 % topical 1 applic topical QDAY PRN 07/07/24 07/07/24 solution seborrheic flare lisinopril 10 mg tablet 10 mg PO QPM 07/07/24 07/07/24 metoprolol succinate 25 mg 25 mg PO QDAY 07/07/24 07/07/24 tablet,extended release 24 hr multivitamin (Daily Multi-Vitamin 1 tab PO QDAY 07/07/24 07/07/24 tablet) sertraline 100 mg tablet 100 mg PO QDAY 07/07/24 07/07/24 Allergies Allergies Allergy/AdvReac Type Severity Reaction Status Date / Time No Known Drug Allergies Allergy Verified 07/07/24 18:03 Exam Exam Examination as recorded was obtained from the patient reports or through my peripheral observations. Constitutional normal general appearance and no apparent distress HENMT normocephalic Eyes PERRL and EOMs intact bilaterally Neck/C-Spine visual inspection normal Chest inspection of chest normal Respiratory normal respiratory effort and no use of accessory muscles Cardiovascular normal heart rate noted and regular rhythm noted Gastrointestinal abdomen normal to inspection Extremities normal to inspection and full ROM Neurology no movement abnormality noted, no focal motor deficit noted and speech normal Skin skin color normal, no jaundice, no petechiae and no mottling Conclusion/Plan Problem List (1) Hyponatremia: Plan: Etiology of hyponatremia unknown, I will evaluate and manage as follows: -order Normal Saline IV @ 100cc/hr, monitor sodium levels q4h -Goal of correction equal to or less than 8meq in the 24hours -If evidence of overcorrection is noted will hold fluids and recheck, if still correcting too quickly with counter with the initiation of D5W -Will obtain Urine analysis and urine studies -Reviewed home medications: he is on an SSRI which can cause hyponatremia, but he has been on the current dosage for many years. -patient has a 1ppd history of tobacco abuse, will obtain a chest xray to evaluate for possible masses that could result in SIADH and hyponatremia. -If above workup is negative further follow up by nephrology is warranted. (2) Hypertension, essential, benign: Plan: Home medications reviewed, will manage as follows: -resume lisinopril 10mg daily, monitor renal function and clinical response to avoid toxicity -resume metoprolol daily, monitor vitals with continuos telemetry to measure clinical response and to avoid adverse effects (3) Depression: Plan: home medication reviewed. pateint on sertraline 100mg daily, will resume. -in the setting of recurrent hyponatremia, if above workup is negative, may consider titrating off sertraline and switching to another form of antidepressant. Lab Results Lab results reviewed: Yes 07/07/24 18:29 07/07/24 18:29 Core Measures Anticipated LOS I expect patient to be DC'd or transferred within 96 hours.: Yes DVT/VTE - Prophylaxis VTE/DVT Device ordered at admit?: Yes Telemedicine Consult Details Provider Location & Consult Time Telemedicine consultation conducted via videoconferencing?: Yes
[2024-07-07] MEDS: ASPIRIN EC 81 MG TABLET PO SCH (21:07)
[2024-07-07] MEDS: METOPROLOL SUCCINATE 25 MG TABLET PO SCH (21:08)
[2024-07-07] MEDS: SERTRALINE 50 MG TABLET PO SCH (21:08)
[2024-07-07] MEDS: lisinopriL 5 MG TABLET PO SCH (21:08)
[2024-07-07] MEDS: SODIUM CHLORIDE 0.9% 1,000 ML IV SCH (21:19)
[2024-07-07] MEDS: ACETAMINOPHEN 325 MG TABLET PO PRN (22:58)
[2024-07-08] MEDS: SODIUM CHLORIDE FLUSH 0.9% 10 ML SYRINGE IVP SCH (00:40)
[2024-07-08 07:29] LABS: BILIRUBIN,URINE NEGATIVE (NEGATIVE); GLUCOSE, URINE (UA) NEGATIVE (NEGATIVE); KETONES,URINE (UA) NEGATIVE (NEGATIVE); LEUKOCYTE ESTERASE, URINE NEGATIVE (NEGATIVE); NITRITE,URINE NEGATIVE (NEGATIVE); OCCULT BLOOD,URINE NEGATIVE (NEGATIVE); PROTEIN,URINE NEGATIVE (NEGATIVE); UROBILINOGEN,URINE 0.2 (NORMAL) E.U./dL (NORMAL)
[2024-07-08 07:36] LABS: BACTERIA,URINE None Seen /HPF (None Seen); CLARITY,URINE CLEAR (CLEAR); RBC,URINE None Seen /HPF (0-5); SQUAMOUS EPITHELIAL CELL,UR NONE SEEN (<= Few); WBC,URINE 0-3 /HPF (0-3)
--- NOTE | 2024-07-08 08:28 | PROVIDER PROGRESS NOTE ---
Subjective Prog Note Date Prog Note Date: 07/08/24 Subjective Pt reports feeling: Improved Current Medications Current Medications Current Medications: Current Medications Generic Name Dose Route Start Last Admin Trade Name Jordiq PRN Reason Stop Dose Admin Acetaminophen 650 mg 07/07/24 20:33 07/08/24 04:19 Acetaminophen 325 Mg Tablet PO 650 mg Q4HR PRN Administration Pain 1 to 4, or Fever Aspirin 81 mg 07/07/24 20:33 07/07/24 21:07 Aspirin Ec 81 Mg Tablet PO Not Given DAILY GIOVNANI Clopidogrel Bisulfate 75 mg 07/08/24 09:00 Clopidogrel 75 Mg Tablet PO DAILY GIOVANNI Sodium Chloride 1,000 mls @ 100 mls/hr 07/07/24 20:33 07/08/24 07:01 Normal Saline 0.9% IV 100 mls/hr .Q10H GIOVANNI Administration Lisinopril 10 mg 07/07/24 21:00 07/07/24 21:08 Lisinopril 5 Mg Tablet PO Not Given QPM GIOVANNI Metoprolol Succinate 25 mg 07/07/24 20:33 07/07/24 21:08 Metoprolol Succinate 25 Mg Tablet PO Not Given DAILY GIOVANNI Ondansetron HCl 4 mg 07/07/24 20:33 Ondansetron Odt 4 Mg Tablet TL Q6HR PRN Nausea / Vomiting Sertraline HCl 100 mg 07/07/24 20:33 07/07/24 21:08 Sertraline 50 Mg Tablet PO Not Given DAILY GIOVANNI Sodium Chloride 10 ml 07/07/24 20:33 Sodium Chloride Flush 0.9% 10 Ml Syringe IVP PRN PRN NEEDED PER PROVIDER ORDERS Sodium Chloride 10 ml 07/08/24 01:00 07/08/24 00:40 Sodium Chloride Flush 0.9% 10 Ml Syringe IVP Not Given 0100,0900,1700 [facility] Objective Vital Signs/Intake & Output Reviewed Vital Signs: Yes Vital Signs: Vital Signs x48h Temp Pulse Resp BP Pulse Ox 07/08/24 05:46 36.5 C 74 18 125/63 96 Intake & Output: Intake & Output 07/05/24 07/06/24 07/07/24 07/08/24 23:59 23:59 23:59 23:59 Intake Total 1000 / 1000 970 / 970 Output Total 450 / 450 Balance 1000 / 1000 520 / 520 Weight (kg) 56.5 kg Objective General Appearance: positive No acute distress and Alert Eyes Bilateral: positive Normal inspection and PERRL ENT: positive ENT inspection nml Neck: positive Nml inspection Respiratory: positive Chest non-tender and No respiratory distress Cardiovascular: positive Regular rate & rhythm Abdomen: positive Non-tender Skin: positive Color nml Extremities: positive Non-tender Neurologic/Psychiatric: positive Oriented x3 Lab Results 07/07/24 18:29 07/08/24 08:57 Other Labs: Lab Results x24hrs 07/08/24 07/08/24 07/08/24 Range/Units 06:41 04:40 00:58 WBC (4.8-10.8) x10^3/uL RBC (4.70-6.10) 10^6/uL Hgb (14.0-18.0) g/dL Hct (42.0-52.0) % MCV (80.0-94.0) fL MCH (27.0-31.0) pg MCHC (32.0-36.0) g/dL RDW (12.0-15.0) % Plt Count (130-450) 10^3/uL MPV (7.4-11.4) fL Neut # (Auto) (1.5-6.6) 10^3/uL Lymph # (Auto) (1.5-3.5) 10^3/uL [place] # (Auto) (0.0-1.0) 10^3/uL Eos # (Auto) (0.0-0.7) 10^3/uL Baso # (Auto) (0.0-0.1) 10^3/uL Absolute Nucleated RBC x10^3/uL Nucleated RBC % /100WBC Sodium 124 L 122 L (135-145) mmol/L Potassium (3.5-4.5) mmol/L Chloride (101-111) mmol/L Carbon Dioxide (21-32) mmol/L Anion Gap (6-13) BUN (6-20) mg/dL Creatinine (0.6-1.3) mg/dL Estimated GFR (MDRD) (>89) Glucose (74-104) mg/dL Calcium (8.5-10.3) mg/dL Total Bilirubin (0.2-1.0) mg/dL AST (10-42) IU/L ALT (10-60) IU/L Alkaline Phosphatase (42-121) IU/L Total Protein (6.4-8.9) g/dL Albumin (3.2-5.5) g/dL Globulin (2.1-4.2) g/dL Albumin/Globulin Ratio (1.0-2.2) Lipase (11-82) U/L Urine Color YELLOW Urine Clarity CLEAR (CLEAR) Urine pH 6.0 (5.0-7.5) PH Ur Specific [place] 1.010 (1.002-1.030) Urine Protein NEGATIVE (NEGATIVE) mg/dL Urine Glucose (UA) NEGATIVE (NEGATIVE) mg/dL Urine Ketones NEGATIVE (NEGATIVE) mg/dL Urine Occult Blood NEGATIVE (NEGATIVE) Urine Nitrite NEGATIVE (NEGATIVE) Urine Bilirubin NEGATIVE (NEGATIVE) Urine Urobilinogen 0.2 (NORMAL) (NORMAL) E.U./dL Ur Leukocyte Esterase NEGATIVE (NEGATIVE) Urine RBC None Seen (0-5) /HPF Urine WBC 0-3 (0-3) /HPF Ur Squamous Epith Cells NONE SEEN (<= Few) Urine Bacteria None Seen (None Seen) /HPF Urine Culture Comments NOT INDICATED 07/07/24 07/07/24 Range/Units 20:00 18:29 WBC 9.7 (4.8-10.8) x10^3/uL RBC 3.88 L (4.70-6.10) 10^6/uL Hgb 12.5 L (14.0-18.0) g/dL Hct 34.3 L (42.0-52.0) % MCV 88.4 (80.0-94.0) fL MCH 32.2 H (27.0-31.0) pg MCHC 36.4 H (32.0-36.0) g/dL RDW 11.9 L (12.0-15.0) % Plt Count 182 (130-450) 10^3/uL MPV 9.0 (7.4-11.4) fL Neut # (Auto) 8.2 H (1.5-6.6) 10^3/uL Lymph # (Auto) 0.6 L (1.5-3.5) 10^3/uL [place] # (Auto) 0.7 (0.0-1.0) 10^3/uL Eos # (Auto) 0.1 (0.0-0.7) 10^3/uL Baso # (Auto) 0.0 (0.0-0.1) 10^3/uL Absolute Nucleated RBC 0.00 x10^3/uL Nucleated RBC % 0.0 /100WBC Sodium 121 L 119 L* (135-145) mmol/L Potassium 4.3 (3.5-4.5) mmol/L Chloride 88 L (101-111) mmol/L Carbon Dioxide 25 (21-32) mmol/L Anion Gap 6.0 (6-13) BUN 18 (6-20) mg/dL Creatinine 0.7 (0.6-1.3) mg/dL Estimated GFR (MDRD) 109 (>89) Glucose 161 H (74-104) mg/dL Calcium 8.5 (8.5-10.3) mg/dL Total Bilirubin 0.6 (0.2-1.0) mg/dL AST 18 (10-42) IU/L ALT 15 (10-60) IU/L Alkaline Phosphatase 49 (42-121) IU/L Total Protein 6.9 (6.4-8.9) g/dL Albumin 3.8 (3.2-5.5) g/dL Globulin 3.1 (2.1-4.2) g/dL Albumin/Globulin Ratio 1.2 (1.0-2.2) Lipase 47 (11-82) U/L Urine Color Urine Clarity (CLEAR) Urine pH (5.0-7.5) PH Ur Specific [place] (1.002-1.030) Urine Protein (NEGATIVE) mg/dL Urine Glucose (UA) (NEGATIVE) mg/dL Urine Ketones (NEGATIVE) mg/dL Urine Occult Blood (NEGATIVE) Urine Nitrite (NEGATIVE) Urine Bilirubin (NEGATIVE) Urine Urobilinogen (NORMAL) E.U./dL Ur Leukocyte Esterase (NEGATIVE) Urine RBC (0-5) /HPF Urine WBC (0-3) /HPF Ur Squamous Epith Cells (<= Few) Urine Bacteria (None Seen) /HPF Urine Culture Comments Assessment/Plan Problem List (1) Hyponatremia: Impression: NS at 100 Sodium levels every 4 Correction goal no more than 8 mEq over 24 hours Urine studies ordered by admitting provider He is on SSRI, but he has been on this for years Chest x-ray Without any mass that could cause SIADH Sodium level 124 at last check. It needs to stay at or below 127 until at least 8:00 tonight (2) Hypertension, essential, benign: Impression: Well-managed Continue home dose lisinopril 10 mg p.o. every afternoon and metoprolol succinate 25 mg p.o. daily (3) Depression: Impression: Continue home dose sertraline
[2024-07-08] MEDS: CLOPIDOGREL 75 MG TABLET PO SCH (08:57)
--- NOTE | 2024-07-08 14:10 | PHARMACY PROGRESS NOTE ---
Best Possible Medication History Admit Date and Time: 07/08/24 [id number] Home Medications Medication Instructions Recorded Confirmed Type aspirin 81 mg tablet,delayed 81 mg PO QDAY 07/07/24 07/08/24 History release (Adult Low Dose Aspirin) clopidogrel 75 mg tablet (Plavix) 75 mg PO DAILY #30 tabs 07/07/24 07/08/24 Rx fluocinonide 0.05 % topical 1 applic topical QDAY PRN 07/07/24 07/08/24 History solution seborrheic flare lisinopril 10 mg tablet 10 mg PO QPM 07/07/24 07/08/24 History metoprolol succinate 25 mg 25 mg PO QDAY 07/07/24 07/08/24 History tablet,extended release 24 hr multivitamin (Daily Multi-Vitamin 1 tab PO QDAY 07/07/24 07/08/24 History tablet) sertraline 100 mg tablet 100 mg PO QDAY 07/07/24 07/08/24 History ibuprofen 200 mg tablet (Advil) 200 mg PO BID PRN pain 07/08/24 07/08/24 History Processed by: Pharmacy (Medication reconciliation completed by pharmacy technician program directorUma) Medications reviewed in ED?: No Medication History completed: Yes Patient Interview: Completed Secondary Source(s): Prescription bottles and Insurance records [facility] Statement: As the person ultimately responsible for medication therapy, providers are able to order a medication from an existing home medication list in [facility] via the "Reconcile Routine" prior to Confirmation of that medication by intelligence support officer. Such practice is discouraged except when the physician, in their clinical judgment, deems that a medical need exists for a medication without regard to previous use.
[2024-07-09] MEDS: IBUPROFEN 400 MG TABLET PO SCH (00:16)
[2024-07-09] MEDS: MORPHINE 2 MG/ML CARPUJECT IVP PRN (04:39)
[2024-07-09 05:35] LABS: BASOPHILS % (AUTO) 0.6 %; EOSINOPHILS # (AUTO) 0.1 10^3/uL (0.0-0.7); HCT - HEMATOCRIT 30.8 % (42.0-52.0); LYMPHOCYTES # (AUTO) 0.8 10^3/uL (1.5-3.5); LYMPHOCYTES % (AUTO) 11.5 %; MEAN CORPUSCULAR HGB CONC 35.7 g/dL (32.0-36.0); MEAN CORPUSCULAR VOLUME 89.5 fL (80.0-94.0); MONOCYTES # (AUTO) 0.7 10^3/uL (0.0-1.0); MONOCYTES % (AUTO) 10.5 %; NEUTROPHILS # (AUTO) 5.1 10^3/uL (1.5-6.6); PLT - PLATELET COUNT 138 10^3/uL (130-450); RED BLOOD COUNT 3.44 10^6/uL (4.70-6.10); RED CELL DISTRIBUTION WIDTH 11.9 % (12.0-15.0); WHITE BLOOD COUNT 6.7 x10^3/uL (4.8-10.8)
[2024-07-09 05:51] LABS: CALCIUM 8.1 mg/dL (8.5-10.3); CREATININE 0.6 mg/dL (0.6-1.3); POTASSIUM 4.2 mmol/L (3.5-4.5)
--- NOTE | 2024-07-09 06:14 | PROVIDER PROGRESS NOTE ---
Unit Coordinator Note Unit Coordinator Note Unit Coordinator Note: na 119 with prior 121 currently on IVF will hold [id number] given risk of worsening low na repeat bmp now
[2024-07-09] MEDS: SODIUM CHLORIDE 1 GM TABLET PO SCH (08:21)
[2024-07-09] MEDS ORDERED: IBUPROFEN 400 MG TABLET PO PRN (08:47)
--- NOTE | 2024-07-09 08:48 | PROVIDER PROGRESS NOTE ---
Subjective Prog Note Date Prog Note Date: 07/09/24 Prog Note Time: 08:38 Subjective Pt reports feeling: Improved Subjective: complains of left hip pain, chronic, but worse this AM. Does not like cardiac diet. he denies headaches or weakness. I am meeting the patient for the first time today. He lives alone. When he needs help, he calls his neighbor, who will be his ride home when he is ready to go. His brother Omi would be his legal decision maker if needed. In the case of cardiopulmonary arrest, He does wish to have CPR and he would not mind being on a ventilator for a short course, but he does not want t obe on "life support" for an extended time. Current Medications Current Medications Current Medications: Current Medications Generic Name Dose Route Start Last Admin Trade Name Freq PRN Reason Stop Dose Admin Acetaminophen 650 mg 07/07/24 20:33 07/09/24 08:22 Acetaminophen 325 Mg Tablet PO 650 mg Q4HR PRN Administration Pain 1 to 4, or Fever Aspirin 81 mg 07/07/24 20:33 07/09/24 08:21 Aspirin Ec 81 Mg Tablet PO 81 mg DAILY GIOVANNI Administration Clopidogrel Bisulfate 75 mg 07/08/24 09:00 07/09/24 08:21 Clopidogrel 75 Mg Tablet PO 75 mg DAILY GIOVANNI Administration Ibuprofen 400 mg 07/08/24 23:45 07/09/24 00:16 Ibuprofen 400 Mg Tablet PO 07/09/24 23:44 400 mg ONCE GIOVANNI Administration Metoprolol Succinate 25 mg 07/07/24 20:33 07/09/24 08:21 Metoprolol Succinate 25 Mg Tablet PO 25 mg DAILY GIOVANNI Administration Morphine Sulfate 2 mg 07/09/24 02:07 07/09/24 04:39 Morphine 2 Mg/Ml Carpuject IVP 2 mg Q4H PRN Administration Severe Pain (Level 7-10) Ondansetron HCl 4 mg 07/07/24 20:33 Ondansetron Odt 4 Mg Tablet TL Q6HR PRN Nausea / Vomiting Sertraline HCl 100 mg 07/07/24 20:33 07/09/24 08:21 Sertraline 50 Mg Tablet PO 100 mg DAILY IGOVANNI Administration Sodium Chloride 10 ml 07/07/24 20:33 Sodium Chloride Flush 0.9% 10 Ml Syringe IVP PRN PRN NEEDED PER PROVIDER ORDERS Sodium Chloride 10 ml 07/08/24 01:00 07/09/24 04:40 Sodium Chloride Flush 0.9% 10 Ml Syringe IVP 10 ml 0100,0900,1700 GIOVANNI Administration Sodium Chloride 1 gm 07/09/24 09:00 07/09/24 08:21 Sodium Chloride 1 Gm Tablet PO 1 gm DAILY GIOVANNI Administration Objective Vital Signs/Intake & Output Reviewed Vital Signs: Yes Vital Signs: Vital Signs x48h Temp Pulse Resp BP Pulse Ox 07/09/24 04:58 36.5 C 62 20 128/57 L 97 Intake & Output: Intake & Output 07/06/24 07/07/24 07/08/24 07/09/24 23:59 23:59 23:59 23:59 Intake Total 1000 / 1000 3088 / 3088 1702 / 1702 Output Total 1650 / 1650 950 / 950 Balance 1000 / 1000 1438 / 1438 752 / 752 Weight (kg) 56.5 kg Objective General Appearance: positive No acute distress and Alert Eyes Bilateral: positive Normal inspection and PERRL ENT: positive ENT inspection nml Neck: positive Nml inspection Respiratory: positive Chest non-tender and No respiratory distress Cardiovascular: positive Regular rate & rhythm Abdomen: positive Non-tender Skin: positive Color nml Extremities: positive Non-tender Neurologic/Psychiatric: positive Oriented x3 Lab Results 07/09/24 05:16 07/09/24 14:05 Other Labs: Lab Results x24hrs 07/09/24 07/09/24 07/08/24 Range/Units 05:16 01:29 21:20 WBC 6.7 (4.8-10.8) x10^3/uL RBC 3.44 L (4.70-6.10) 10^6/uL Hgb 11.0 L (14.0-18.0) g/dL Hct 30.8 L (42.0-52.0) % MCV 89.5 (80.0-94.0) fL MCH 32.0 H (27.0-31.0) pg MCHC 35.7 (32.0-36.0) g/dL RDW 11.9 L (12.0-15.0) % Plt Count 138 (130-450) 10^3/uL MPV 9.0 (7.4-11.4) fL Neut # (Auto) 5.1 (1.5-6.6) 10^3/uL Lymph # (Auto) 0.8 L (1.5-3.5) 10^3/uL [place] # (Auto) 0.7 (0.0-1.0) 10^3/uL Eos # (Auto) 0.1 (0.0-0.7) 10^3/uL Baso # (Auto) 0.0 (0.0-0.1) 10^3/uL Absolute Nucleated RBC 0.00 x10^3/uL Nucleated RBC % 0.0 /100WBC Sodium 119 L* 121 L 120 L* (135-145) mmol/L Potassium 4.2 (3.5-4.5) mmol/L Chloride 91 L (101-111) mmol/L Carbon Dioxide 24 (21-32) mmol/L Anion Gap 4.0 L (6-13) BUN 15 (6-20) mg/dL Creatinine 0.6 (0.6-1.3) mg/dL Estimated GFR (MDRD) 131 (>89) Glucose 86 (74-104) mg/dL Calcium 8.1 L (8.5-10.3) mg/dL 07/08/24 07/08/24 07/08/24 Range/Units 17:32 13:16 08:57 WBC (4.8-10.8) x10^3/uL RBC (4.70-6.10) 10^6/uL Hgb (14.0-18.0) g/dL Hct (42.0-52.0) % MCV (80.0-94.0) fL MCH (27.0-31.0) pg MCHC (32.0-36.0) g/dL RDW (12.0-15.0) % Plt Count (130-450) 10^3/uL MPV (7.4-11.4) fL Neut # (Auto) (1.5-6.6) 10^3/uL Lymph # (Auto) (1.5-3.5) 10^3/uL [place] # (Auto) (0.0-1.0) 10^3/uL Eos # (Auto) (0.0-0.7) 10^3/uL Baso # (Auto) (0.0-0.1) 10^3/uL Absolute Nucleated RBC x10^3/uL Nucleated RBC % /100WBC Sodium 123 L 122 L 122 L (135-145) mmol/L Potassium (3.5-4.5) mmol/L Chloride (101-111) mmol/L Carbon Dioxide (21-32) mmol/L Anion Gap (6-13) BUN (6-20) mg/dL Creatinine (0.6-1.3) mg/dL Estimated GFR (MDRD) (>89) Glucose (74-104) mg/dL Calcium (8.5-10.3) mg/dL Assessment/Plan Problem List (1) Hyponatremia: Impression: He is not making progress with correction this AM. Over the course of today, things have improved with changes made (fluid restriction, DC IVF, change diet, add salt tabs). Na has risen from 119 this AM at 0500 to 122 this afternoon at 1400. That is a 3 point correction in 9 hours. would like to see him continue at this rate, approximately. Overnight held ANNETTE inh. I am stopping NS. Sodium levels every 6h Correction goal no more than 8 mEq over 24 hours Urine studies ordered by admitting provider, remain pending He is on SSRI, but he has been on this for years Chest x-ray Without any mass that could cause SIADH I am placing him on free water restriction, adding salt tabs and changing his diet to regular from cardiac. Laboratory Tests 07/07/24 07/07/24 07/07/24 15:01 18:29 20:00 Sodium 120 L* 119 L* 121 L 07/08/24 07/08/24 07/08/24 00:58 04:40 08:57 Sodium 122 L 124 L 122 L 07/08/24 07/08/24 07/08/24 13:16 17:32 21:20 Sodium 122 L 123 L 120 L* 07/09/24 07/09/24 01:29 05:16 Sodium 121 L 119 L* (2) Hypertension, essential, benign: Impression: Well-managed Holding lisinopril due to hyponatremia that is not correcting. Continuing metoprolol succinate 25 mg p.o. daily. Holding parameters were placed for Metoprolol. Selected Entries 07/08/24 20:06 07/08/24 23:22 07/09/24 04:58 Blood Pressure [Right Brachial artery] 124/54 L 131/59 H 128/57 L (3) Depression: Impression: Continue home dose sertraline (4) Chronic left hip pain: Impression: Was given morphine which helped some. I will change this to oxycodone , and add motrin as well. Lidoderm PRN. This is chronic pain, XR last done in October of this year, and was significant for degenerative change. he has been able to ambulate. I have spent 40 minutes in the care of this patient today. This includes time [id number], review and ordering of diagnostic imaging and laboratory studie, s and consultation with other providers.. Monitoring the patient's signs symptoms, evaluation of medication effectiveness and patient's response to treatment.
[2024-07-09] MEDS: LIDOCAINE PATCH 4% TOP SCH (08:56)
[2024-07-09] MEDS: oxyCODONE 5 MG TABLET PO PRN (08:56)
[2024-07-10 05:54] LABS: BASOPHILS # (AUTO) 0.1 10^3/uL (0.0-0.1); BASOPHILS % (AUTO) 0.7 %; EOSINOPHILS # (AUTO) 0.1 10^3/uL (0.0-0.7); EOSINOPHILS % (AUTO) 1.1 %; HCT - HEMATOCRIT 34.4 % (42.0-52.0); HGB - HEMOGLOBIN 12.1 g/dL (14.0-18.0); LYMPHOCYTES # (AUTO) 0.6 10^3/uL (1.5-3.5); LYMPHOCYTES % (AUTO) 7.8 %; MEAN CORPUSCULAR HEMOGLOBIN 32.1 pg (27.0-31.0); MEAN CORPUSCULAR HGB CONC 35.2 g/dL (32.0-36.0); MEAN CORPUSCULAR VOLUME 91.2 fL (80.0-94.0); MEAN PLATELET VOLUME 8.9 fL (7.4-11.4); MONOCYTES # (AUTO) 0.7 10^3/uL (0.0-1.0); MONOCYTES % (AUTO) 8.6 %; NEUTROPHILS # (AUTO) 6.2 10^3/uL (1.5-6.6); NEUTROPHILS % (AUTO) 81.5 %; PLT - PLATELET COUNT 149 10^3/uL (130-450); RED BLOOD COUNT 3.77 10^6/uL (4.70-6.10); WHITE BLOOD COUNT 7.6 x10^3/uL (4.8-10.8)
[2024-07-10 06:18] LABS: CALCIUM 8.7 mg/dL (8.5-10.3); CREATININE 0.7 mg/dL (0.6-1.3); POTASSIUM 4.1 mmol/L (3.5-4.5)
[2024-07-10 08:07] VITALS: BP 125/52; TEMP 98.1; O2SAT 97
--- NOTE | 2024-07-10 08:30 | PROVIDER PROGRESS NOTE ---
Current Medications Current Medications Current Medications: Current Medications Generic Name Dose Route Start Last Admin Trade Name Freq PRN Reason Stop Dose Admin Acetaminophen 650 mg 07/07/24 20:33 07/09/24 08:22 Acetaminophen 325 Mg Tablet PO 650 mg Q4HR PRN Administration Pain 1 to 4, or Fever Aspirin 81 mg 07/07/24 20:33 07/10/24 08:11 Aspirin Ec 81 Mg Tablet PO 81 mg DAILY GIOVANNI Administration Clopidogrel Bisulfate 75 mg 07/08/24 09:00 07/10/24 08:11 Clopidogrel 75 Mg Tablet PO 75 mg DAILY GIOVANNI Administration Lidocaine 1 patch 07/09/24 09:00 07/10/24 08:11 Lidocaine Patch 4% TOP 1 patch DAILY GIOVANNI Administration Metoprolol Succinate 25 mg 07/07/24 20:33 07/10/24 08:11 Metoprolol Succinate 25 Mg Tablet PO 25 mg DAILY GIOVANNI Administration Morphine Sulfate 2 mg 07/09/24 02:07 07/09/24 04:39 Morphine 2 Mg/Ml Carpuject IVP 2 mg Q4H PRN Administration Severe Pain (Level 7-10) Ondansetron HCl 4 mg 07/07/24 20:33 Ondansetron Odt 4 Mg Tablet TL Q6HR PRN Nausea / Vomiting Oxycodone HCl 5 mg 07/09/24 08:47 07/10/24 04:38 Oxycodone 5 Mg Tablet PO 5 mg Q4HR PRN Administration Moderate Pain (Level 4-6) Sertraline HCl 100 mg 07/07/24 20:33 07/10/24 08:11 Sertraline 50 Mg Tablet PO 100 mg DAILY GIOVANNI Administration Sodium Chloride 10 ml 07/07/24 20:33 Sodium Chloride Flush 0.9% 10 Ml Syringe IVP PRN PRN NEEDED PER PROVIDER ORDERS Sodium Chloride 10 ml 07/08/24 01:00 07/10/24 08:11 Sodium Chloride Flush 0.9% 10 Ml Syringe IVP 10 ml 0100,0900,1700 GIOVANNI Administration Sodium Chloride 1 gm 07/09/24 09:00 07/10/24 08:11 Sodium Chloride 1 Gm Tablet PO 1 gm DAILY GIOVANNI Administration Objective Vital Signs/Intake & Output Reviewed Vital Signs: Yes Vital Signs: Vital Signs x48h Temp Pulse Resp BP Pulse Ox O2 Flow Rate 07/10/24 08:06 36.7 C 68 20 125/52 L 97 0 Intake & Output: Intake & Output 07/07/24 07/08/24 07/09/24 07/10/24 23:59 23:59 23:59 23:59 Intake Total 1000 / 1000 3088 / 3088 2155 / 2155 250 / 250 Output Total 1650 / 1650 950 / 950 200 / 200 Balance 1000 / 1000 1438 / 1438 1205 / 1205 50 / 50 Weight (kg) 56.5 kg Objective General Appearance: positive No acute distress and Alert Eyes Bilateral: positive Normal inspection and PERRL ENT: positive ENT inspection nml Neck: positive Nml inspection Respiratory: positive Chest non-tender and No respiratory distress Cardiovascular: positive Regular rate & rhythm Abdomen: positive Non-tender Skin: positive Color nml Extremities: positive Non-tender Neurologic/Psychiatric: positive Oriented x3 Lab Results 07/10/24 05:45 07/10/24 11:58 Other Labs: Lab Results x24hrs 07/10/24 07/10/24 07/09/24 Range/Units 05:45 02:19 20:10 WBC 7.6 (4.8-10.8) x10^3/uL RBC 3.77 L (4.70-6.10) 10^6/uL Hgb 12.1 L (14.0-18.0) g/dL Hct 34.4 L (42.0-52.0) % MCV 91.2 (80.0-94.0) fL MCH 32.1 H (27.0-31.0) pg MCHC 35.2 (32.0-36.0) g/dL RDW 12.0 (12.0-15.0) % Plt Count 149 (130-450) 10^3/uL MPV 8.9 (7.4-11.4) fL Neut # (Auto) 6.2 (1.5-6.6) 10^3/uL Lymph # (Auto) 0.6 L (1.5-3.5) 10^3/uL [place] # (Auto) 0.7 (0.0-1.0) 10^3/uL Eos # (Auto) 0.1 (0.0-0.7) 10^3/uL Baso # (Auto) 0.1 (0.0-0.1) 10^3/uL Absolute Nucleated RBC 0.00 x10^3/uL Nucleated RBC % 0.0 /100WBC Sodium 126 L 126 L 124 L (135-145) mmol/L Potassium 4.1 (3.5-4.5) mmol/L Chloride 92 L (101-111) mmol/L Carbon Dioxide 28 (21-32) mmol/L Anion Gap 6.0 (6-13) BUN 12 (6-20) mg/dL Creatinine 0.7 (0.6-1.3) mg/dL Estimated GFR (MDRD) 109 (>89) Glucose 122 H (74-104) mg/dL Serum Osmolality (280-301) mOsmol/kg Calcium 8.7 (8.5-10.3) mg/dL 07/09/24 07/09/24 07/07/24 Range/Units 14:05 09:04 20:59 WBC (4.8-10.8) x10^3/uL RBC (4.70-6.10) 10^6/uL Hgb (14.0-18.0) g/dL Hct (42.0-52.0) % MCV (80.0-94.0) fL MCH (27.0-31.0) pg MCHC (32.0-36.0) g/dL RDW (12.0-15.0) % Plt Count (130-450) 10^3/uL MPV (7.4-11.4) fL Neut # (Auto) (1.5-6.6) 10^3/uL Lymph # (Auto) (1.5-3.5) 10^3/uL [place] # (Auto) (0.0-1.0) 10^3/uL Eos # (Auto) (0.0-0.7) 10^3/uL Baso # (Auto) (0.0-0.1) 10^3/uL Absolute Nucleated RBC x10^3/uL Nucleated RBC % /100WBC Sodium 122 L 120 L* (135-145) mmol/L Potassium (3.5-4.5) mmol/L Chloride (101-111) mmol/L Carbon Dioxide (21-32) mmol/L Anion Gap (6-13) BUN (6-20) mg/dL Creatinine (0.6-1.3) mg/dL Estimated GFR (MDRD) (>89) Glucose (74-104) mg/dL Serum Osmolality 260 L (280-301) mOsmol/kg Calcium (8.5-10.3) mg/dL Assessment/Plan Problem List (1) Hyponatremia: Impression: 07/10: 07/09:He is not making progress with correction this AM. Over the course of today, things have improved with changes made (fluid restriction, DC IVF, change diet, add salt tabs). Na has risen from 119 this AM at 0500 to 122 this afternoon at 1400. That is a 3 point correction in 9 hours. would like to see him continue at this rate, approximately. Overnight held ANNETTE inh. I am stopping NS. Sodium levels every 6h Correction goal no more than 8 mEq over 24 hours Urine studies ordered by admitting provider, remain pending He is on SSRI, but he has been on this for years Chest x-ray Without any mass that could cause SIADH I am placing him on free water restriction, adding salt tabs and changing his diet to regular from cardiac. Laboratory Tests 07/09/24 07/09/24 07/09/24 05:16 09:04 14:05 Sodium 119 L* 120 L* 122 L 07/09/24 07/10/24 07/10/24 20:10 02:19 05:45 Sodium 124 L 126 L 126 L (2) Hypertension, essential, benign: Impression: Well-managed Holding lisinopril due to hyponatremia that is not correcting. Continuing metoprolol succinate 25 mg p.o. daily. Holding parameters were placed for Metoprolol. Selected Entries 07/10/24 00:20 07/10/24 08:06 Pulse Rate [Monitoring electrodes] 62 68 Blood Pressure [Right Brachial artery] 145/70 H 125/52 L (3) Depression: Impression: Continue home dose sertraline (4) Chronic left hip pain: Impression: Was given morphine which helped some. I will change this to oxycodone , and add motrin as well. Lidoderm PRN. This is chronic pain, XR last done in October of this year, and was significant for degenerative change. he has been able to ambulate. I have spent 38 minutes in the care of this patient today. This includes time [id number], review and ordering of diagnostic imaging and laboratory studie, s and consultation with other providers. Monitoring the patient's signs symptoms, evaluation of medication effectiveness and patient's response to treatment.
--- NOTE | 2024-07-10 12:20 | Discharge Summary ---
"Discharge Summary Admit Date: 07/07/24 Discharge Date: 07/10/24 Discharging Provider: Nadja Ramos PA-C Primary Care Provider: Stefanie Crum PA-C Code Status: Attempt Resuscitation DIAGNOSES Discharge Diagnoses with Status of Each Condition: Hyponatremia, chronic, adequately resolved. Hypertension, chronic and managed Depression, chronic and managed Chronic left hip pain HPI History of Present Illness: Mr. Rodriguez is a 79yoM with a history of hypertension,TIA, depression that presented to the ED for re-evaluation of low sodium. He initially presented a week prior to this presentation with complaints of weakness, fatigue and lethargy,. He denied any precipitating factors, sick contacts, cough, fever, shortness of breath. Workup at that time demonstrated a sodium of 119. He left AMA once his sodium levels corrected after receiving fluids in the ED. On the day of presentation he had outpatient labwork at his follow up appointment with his PCP and was found to have a sodium of 119 again. He endorses similar symptoms,but denies any new acute changes.He was recently started on Plavix. He takes lisinopril for hypertension and Sertraline for depression. He has not had any changes to his medications or dosages in the past month. Due to the increased risk of adverse outcome of untreated hyponatremia and the reoccurrence, I will admit the patient to the hospitalist service for further evaluation and management. During my evaluation, telemedicine tools, including phone and live-video were used. Patient gave consent to proceed with this visit via telemedicine. I discussed the Plan of care to correct and monitor his sodium levels with the patient. He agreed with plan of treat and admission. CONSULTS | PROCEDURES Procedures: Chest x-ray: Mild cardiomegaly and mild interstitial prominence. Consider early CHF Aorta is prominent and tortuous Moderate dextroconvex thoracic scoliosis HOSPITAL COURSE Hospital Course: 1) Hyponatremia: 07/10:He is asymptomatic with his hyponatremia. His hyponatremia has some chronicity. He has improved to sodium level of 127. This is acceptable for discharge patient is discharged home in stable condition in the care of friends and family. 07/09:He is not making progress with correction this AM. Over the course of today, things have improved with changes made (fluid restriction, DC IVF, change diet, add salt tabs). Na has risen from 119 this AM at 0500 to 122 this afternoon at 1400. That is a 3 point correction in 9 hours. would like to see him continue at this rate, approximately. Overnight held ANNETTE inh. I am stopping NS. Sodium levels every 6h Correction goal no more than 8 mEq over 24 hours Urine studies ordered by admitting provider, remain pending He is on SSRI, but he has been on this for years Chest x-ray Without any mass that could cause SIADH I am placing him on free water restriction, adding salt tabs and changing his diet to regular from cardiac. Laboratory Tests 07/07/24 07/08/24 07/09/24 18:29 21:20 01:29 Sodium 119 L* 120 L* 121 L 07/09/24 07/09/24 07/09/24 05:16 09:04 14:05 Sodium 119 L* 120 L* 122 L 07/09/24 07/10/24 07/10/24 20:10 02:19 05:45 Sodium 124 L 126 L 126 L 07/10/24 11:58 Sodium 127 L (2) Hypertension, essential, benign: Impression: Well-managed Holding lisinopril due to hyponatremia. Continuing metoprolol succinate 25 mg p.o. daily. Holding parameters were placed for Metoprolol. Selected Entries 07/08/24 20:06 07/08/24 23:22 07/09/24 04:58 Pulse Rate [Brachial] 68 65 62 Pulse Rate [Monitoring electrodes] Blood Pressure [Right Brachial artery] 124/54 L 131/59 H 128/57 L 07/09/24 08:50 07/09/24 14:42 07/09/24 16:30 Pulse Rate [Brachial] 83 62 61 Pulse Rate [Monitoring electrodes] Blood Pressure [Right Brachial artery] 114/71 117/49 L 125/60 07/10/24 00:20 07/10/24 08:06 Pulse Rate [Brachial] Pulse Rate [Monitoring electrodes] 62 68 Blood Pressure [Right Brachial artery] 145/70 H 125/52 L (3) Depression: Continue home dose sertraline (4) Chronic left hip pain: Was given morphine which helped some. I will change this to oxycodone , and add motrin as well. Lidoderm PRN. This is chronic pain, XR last done in October of this year, and was significant for degenerative change. he has been able to ambulate. ALLERGIES Allergies Allergy/AdvReac Type Severity Reaction Status Date / Time No Known Drug Allergies Allergy Verified 07/07/24 18:03 MEDICATIONS Ambulatory Orders Medication Instructions Recorded Confirmed aspirin 81 mg tablet,delayed 81 mg PO QDAY 07/07/24 07/08/24 release (Adult Low Dose Aspirin) clopidogrel 75 mg tablet (Plavix) 75 mg PO DAILY #30 tabs 07/07/24 07/08/24 fluocinonide 0.05 % topical 1 applic topical QDAY PRN 07/07/24 07/08/24 solution seborrheic flare metoprolol succinate 25 mg 25 mg PO QDAY 07/07/24 07/08/24 tablet,extended release 24 hr multivitamin (Daily Multi-Vitamin 1 tab PO QDAY 07/07/24 07/08/24 tablet) sertraline 100 mg tablet 100 mg PO QDAY 07/07/24 07/08/24 ibuprofen 200 mg tablet (Advil) 200 mg PO BID PRN pain 07/08/24 07/08/24 sodium chloride 1,000 mg soluble 1,000 mg PO DAILY #30 tabs 07/10/24 tablet PHYSICAL EXAM AT DISCHARGE General Appearance: positive No acute distress and Alert Eyes Bilateral: positive Normal inspection ENT: positive ENT inspection nml Neck: positive Nml inspection Respiratory: positive No respiratory distress and Breath sounds nml Cardiovascular: positive Regular rate & rhythm Peripheral Pulses: positive 2+ Abdomen: positive No distention Skin: positive Color nml Extremities: positive Full ROM and No pedal edema LABS 07/10/24 05:45 07/10/24 11:58 FOLLOW UP Follow Up: PCP within one week for helen BMP. Also helen BP in light of medication changes. TIME SPENT Time Spent in Discharge (Minutes): 40 Discharge Plan Discharge Patient Disposition: Home, Self Care Condition: Good Prescriptions: New sodium chloride 1,000 mg Tablet,Soluble 1,000 mg PO DAILY Qty: 30 0RF Continued clopidogrel [Plavix] 75 mg tablet 75 mg PO DAILY Qty: 30 2RF ibuprofen [Advil] 200 mg tablet 200 mg PO BID PRN (Reason: pain) metoprolol succinate 25 mg tablet extended release 24 hr 25 mg PO QDAY sertraline 100 mg tablet 100 mg PO QDAY fluocinonide 0.05 % solution 1 applic topical QDAY PRN (Reason: seborrheic flare) multivitamin [Daily Multi-Vitamin] Tablet 1 tab PO QDAY aspirin [Adult Low Dose Aspirin] 81 mg tablet,delayed release (DR/EC) 81 mg PO QDAY Discontinued lisinopril 10 mg tablet 10 mg PO QPM Activity Restrictions: Activity as Tolerated Activity Restrictions/Additional Instructions: D/C packet given to pt. Instructions provided. Lidocaine patch on left lower back to be removed at 2011H. Verbalized understanding. No other concerns made. Diet: Regular Health Concerns: You presented to the hospital with complaints of weakness and feeling lethargic. This was related to your sodium being very low at 119. Since you have been here we have corrected your sodium by adding oral salt intake and restricting intake of free water. What free water restriction means is letting you have liquids that have lots of electrolytes in them. I would encourage you to continue to do this when you leave the hospital. Things like sugar-free Gatorade or sugar-free liquid IV mix are excellent things that you can mix with water and drink at home. You have chronically low sodium but when it gets as low as it did you do need to be hospitalized. Your sodium today at the time of discharge is 127. Normal is 135-145. The medications that you take that can cause problems with your sodium are lisinopril and sertraline. I have stopped her lisinopril while you were here in the hospital because your blood pressure has been under excellent control with the metoprolol that you also take. I want you to stop your lisinopril when you go home. I have not stopped your sertraline. The reason I have not done this is because I think you would have problems if we did stop it. Medications like sertraline often do because decreased sodium. Care Plan Goals: Decrease your alcohol intake. It would not be a bad idea to stop drinking alcohol altogether. You have not had any withdrawal symptoms since you have been here in the hospital. Return to the emergency department if you start to feel weak, tremulous, or have headaches. Follow-up with your primary care provider for repeat sodium assessment within the week. Assessment: Continue to maintain your independence with help from your friends. Change your medications. Stop taking lisinopril. Plan of Treatment: Reduce your alcohol intake or stop drinking altogether Add dietary salt. Follow-up for recheck of serum sodium Follow-up with MARIBEL Crum to talk about your sodium, your alcohol use, and how you will monitor these things going forward. Print Language: Maltese Patient Instructions: Sodium Blood, Hyponatremia Dc Follow-up Care: Stefanie Crum PA-C [Primary Care Provider] -"
--- NOTE | 2024-07-10 16:32 | ADVANCE CARE PLANNING NOTE ---
Advance Care Planning Planning Encounter Date: 07/10/24 Time: 12:30 Purpose: determine care goals going forward Parties in Attendance: Patient Jaren Rodriguez, and Nadja Ramos PA-C Decisional Capacity of the Patient: alert and oriented with insight into his condition Diagnosis for Encounter (1) Hyponatremia: (2) Hypertension, essential, benign: (3) Depression: (4) Chronic left hip pain: Encounter Subjective/Patient's Story: Lives alone. He is satisfied with his life. Has a group of good friends including a friend son who provides much of his transportation. Does not have any relatives nearby. His brother lives in [place], he has a close relationship with him he states. Objective/Medical Story: Continues to drink alcohol which may plan to his hyponatremia. Considers this to be a significant part of his life although with this recent hospitalization is considering decreasing his drinking slightly. He goes to dinner with a group of friends every Saturday night at [employer] and has two double vodka tonics Although he has a history of TIAs and hyponatremia he considers himself to be in relatively good health. 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 Goals of Care: Does not want to be dependent on others. Would like life to continue to go on the way it is. He does not have insight into his own deterioration. Plan: Adamantly wishes to be full code and full care. Designates his brother as his surrogate decision maker. His brother's name is Omi Rodriguez Code Status: Attempt Resuscitation Time spent on advance care plannin min
== END 2024-07-10 13:10 | disposition home or self-care (01) | DRG 641 ==
LOC: MS2 17:51 → ED 17:51
PROVIDERS: ADMIT Hospitalist; ATTEND Hospitalist
DX: Z86.73 Personal history of transient ischemic attack (TIA), and cerebral infarction without residual deficits; Z79.82 Long term (current) use of aspirin; I10 Essential (primary) hypertension; M25.552 Pain in left hip; Z79.899 Other long term (current) drug therapy; F32.A Depression, unspecified; F17.210 Nicotine dependence, cigarettes, uncomplicated; Z79.02 Long term (current) use of antithrombotics/antiplatelets; E87.1 Hypo-osmolality and hyponatremia; G89.29 Other chronic pain; Q25.46 Tortuous aortic arch; I51.7 Cardiomegaly; Z63.5 Disruption of family by separation and divorce